=== PATIENT | female | born 1960 | race Hispanic/Latino ===

== ENCOUNTER 2018-01-24 15:30 | Outpatient (CLI) | payer BC ==
--- NOTE | 2018-01-25 09:50 | Mammography Report ---
RIGHT DIGITAL DIAGNOSTIC MAMMOGRAM with CAD: 01/24/18 15:30:00 CLINICAL: Right breast lump on clinical breast exam. COMPARISON:07/05/17 FINDINGS: The breast is heterogeneously dense with a stable fibroglandular pattern.No mass, architectural distortion or suspicious calcifications. 2 palpable markers at 11:30 o'clock and at 12 o'clock correlate with stable asymmetric fibroglandular densities. IMPRESSION: No mammographic evidence of malignancy. BI-RADS CATEGORY: 1 - - Negative RECOMMENDATION: Management of any palpable finding based on clinical breast exam and on ultrasound findings. ACR BI-RADS MAMMOGRAPHIC CODES: 0 = Needs additional imaging evaluation; 1 = Negative; 2 = Benign; 3 = Probably benign; 4 = Suspicious; 5 = Malignant; 6 = Known biopsy-proven malignancy COMMENT: 1. Dense breast tissue, i.e., adenosis, fibrocystic changes, etc., may obscure an underlying neoplasm. 2. Approximately 10% of cancers are not detected with mammography. 3. A negative mammography report should not delay biopsy if a clinically suspicious mass is present. COMMENT: Patient follow-up letters are generated by our [employer] application.
== END 2018-01-24 15:31 | disposition home or self-care (01) ==
LOC: SPVWC 15:30
PROVIDERS: ATTEND Surgery
DX: R92.8 Other abnormal and inconclusive findings on diagnostic imaging of breast (principal)

== ENCOUNTER 2018-01-25 08:26 | Outpatient (CLI) | payer BC | END 2018-01-25 08:27 | disposition home or self-care (01) | LOC: LABHHL 08:26 | PROVIDERS: ATTEND Surgery | DX: N60.01 Solitary cyst of right breast (principal) | CPT/HCPCS: 88112 ==